=== PATIENT | female | born 1960 | race Caucasian/White ===

== ENCOUNTER 2017-11-24 08:25 | Day surgery (SDC) | payer OTHER ==
[~2017-11-24] VITALS: Ht 162.6 cm; Wt 102.7 kg
[2017-11-24] MEDS ORDERED: SODIUM CHLORIDE 0.9% 1,000 ML IV SCH (08:55)
[2017-11-24] MEDS ORDERED: PLEASE ENTER HEIGHT AND WEIGHT MC SCH (09:00)
[2017-11-24 09:25] VITALS: BP 157/99
[2017-11-24] MEDS ORDERED: SIMV20TA3 PO (09:38)
[2017-11-24] MEDS ORDERED: OMEG-118 PO (09:38)
[2017-11-24] MEDS ORDERED: FURO20TA3 PO (09:38)
[2017-11-24] MEDS ORDERED: PRED20TA PO (09:38)
[2017-11-24] MEDS ORDERED: METO-93 PO (09:38)
[2017-11-24] MEDS ORDERED: PARO40TA3 PO (09:38)
[2017-11-24] MEDS ORDERED: LEVO100C2 PO (09:38)
[2017-11-24] MEDS ORDERED: POTA10TA12 PO (09:38)
[2017-11-24] MEDS ORDERED: LACT1CAP35 PO (09:39)
[2017-11-24] MEDS ORDERED: CHOL5000 PO (09:39)
[2017-11-24] MEDS ORDERED: MIDAZOLAM 1 MG/ML, 2ML ONE (10:12)
[2017-11-24] MEDS ORDERED: LIDOCAINE 2%, 20ML ONE (10:13)
[2017-11-24] MEDS ORDERED: FENTANYL PF 100 MCG/2ML ONE (10:13)
== END 2017-11-24 12:50 | disposition home or self-care (01) ==
LOC: CACL 08:25
PROVIDERS: ATTEND Internal Medicine Cardiovascular Disease
DX: I27.0 Primary pulmonary hypertension (principal); J84.10 Pulmonary fibrosis, unspecified; I10 Essential (primary) hypertension; E78.5 Hyperlipidemia, unspecified
CPT/HCPCS: 93451; 99156; C1894; J2250; J3010; J3490